=== PATIENT | male | born 1950 | race Caucasian/White ===

== ENCOUNTER 2017-06-01 14:16 | Day surgery (SDC) | payer OTHER, MEDICARE ==
[2017-06-01] MEDS ORDERED: DIAZEPAM 5 MG TAB ONE (14:36)
[2017-06-01] MEDS ORDERED: DEXAMETHASONE SOD PHOS PF 10 MG/ML SOL IJ ONE (15:19)
[2017-06-01] MEDS ORDERED: BUPIVACAINE HCL 0.25% MPF 10 ML SOL INFIL ONE (15:20)
[2017-06-01 16:16] VITALS: BP 148/88; PULSE 62; RESP 16; TEMP 98.5; O2SAT 94
== END 2017-06-01 16:20 | disposition home or self-care (01) ==
LOC: SURG 14:16
PROVIDERS: ATTEND Nurse Anesthetist, Certified Registered
DX: M54.5 Low back pain (principal); M54.16 Radiculopathy, lumbar region
CPT/HCPCS: A9270-GY; J1100

== ENCOUNTER 2017-08-29 12:32 | Day surgery (SDC) | payer OTHER, MEDICARE ==
[2017-08-29 13:32] VITALS: TEMP 99.4
[2017-08-29] MEDS ORDERED: SODIUM CHLORIDE 0.9% FLUSH 10 ML SOL IV ONE (13:55)
[2017-08-29] MEDS ORDERED: BUPIVACAINE HCL 0.25% MPF 30 ML SOL INFIL ONE (14:25)
[2017-08-29] MEDS: FENTANYL 100MCG/2ML SOL ONE ×2 (14:31→14:40)
[2017-08-29] MEDS: MIDAZOLAM 2 MG/2 ML SOL ONE ×2 (14:32→14:36)
[2017-08-29 14:47] VITALS: RESP 16
[2017-08-29] MEDS ORDERED: LIDOCAINE HCL 2% MPF 10 ML SOL ONE (15:11)
[2017-08-29 15:40] VITALS: BP 138/76; PULSE 71; O2SAT 95
== END 2017-08-29 15:30 | disposition home or self-care (01) ==
LOC: SURG 12:32
PROVIDERS: ATTEND Nurse Anesthetist, Certified Registered
DX: M12.88 Other specific arthropathies, not elsewhere classified, other specified site (principal); E11.9 Type 2 diabetes mellitus without complications
CPT/HCPCS: 82962; J2250; J3010

== ENCOUNTER 2017-09-27 09:20 | Day surgery (SDC) | payer OTHER, MEDICARE ==
[2017-09-27] MEDS ORDERED: LIDOCAINE HCL 2% MPF 10 ML SOL ONE (09:48)
[2017-09-27] MEDS ORDERED: LIDOCAINE HCL 1% MPF 30 SOL ONE (09:48)
[2017-09-27] MEDS ORDERED: BUPIVACAINE HCL 0.5% MPF 10 ML SOL ONE (09:49)
[2017-09-27] MEDS ORDERED: MIDAZOLAM 2 MG/2 ML SOL ONE ×2 (09:51→10:54)
[2017-09-27] MEDS ORDERED: SODIUM CHLORIDE 0.9% FLUSH 10 ML SOL IV ONE (10:02)
[2017-09-27] MEDS: FENTANYL 100MCG/2ML SOL ONE ×2 (10:14→10:50)
[2017-09-27] MEDS: TRIAMCINOLONE ACETONIDE 40 MG/ML SUS ONE ×2 (10:46→11:04)
[2017-09-27 11:25] VITALS: BP 168/95; RESP 18; TEMP 97.4; O2SAT 93
[2017-09-27 11:29] VITALS: PULSE 64
== END 2017-09-27 11:56 | disposition home or self-care (01) ==
LOC: SURG 09:20
PROVIDERS: ATTEND Nurse Anesthetist, Certified Registered
DX: M12.88 Other specific arthropathies, not elsewhere classified, other specified site (principal)
CPT/HCPCS: J2250; J3010; A6402; J2001; J3300

== ENCOUNTER 2017-11-08 13:14 | Day surgery (SDC) | payer OTHER, MEDICARE ==
[2017-11-08] MEDS ORDERED: BUPIVACAINE HCL 0.25% MPF 30 ML SOL INFIL ONE (14:10)
[2017-11-08] MEDS ORDERED: TRIAMCINOLONE ACETONIDE 40 MG/ML SUS ONE (14:10)
[2017-11-08] MEDS ORDERED: MIDAZOLAM 2 MG/2 ML SOL ONE (14:16)
[2017-11-08] MEDS ORDERED: SODIUM CHLORIDE 0.9% FLUSH 10 ML SOL IV ONE ×2 (14:34→14:37)
[2017-11-08] MEDS: FENTANYL 100MCG/2ML SOL ONE ×2 (14:35→14:37)
[2017-11-08] MEDS: TRIAMCINOLONE ACETONIDE 40 MG/ML SUS ONE ×2 (14:40→14:45)
[2017-11-08 15:04] VITALS: PULSE 67; RESP 20; TEMP 98.9; O2SAT 99
[2017-11-08 16:11] VITALS: BP 152/94
== END 2017-11-08 15:20 | disposition home or self-care (01) ==
LOC: SURG 13:14
PROVIDERS: ATTEND Nurse Anesthetist, Certified Registered
DX: M12.9 Arthropathy, unspecified (principal); E11.9 Type 2 diabetes mellitus without complications
CPT/HCPCS: J2250; J3010; J3300

== ENCOUNTER 2018-06-26 23:17 | Emergency (ER) | payer BC, MEDICARE ==
[2018-06-26] MEDS ORDERED: LIDOCAINE 1% W/EPI MPF 30 ML SOL INFIL ONE (23:57)
[2018-06-26] MEDS ORDERED: LIDOCAINE 1% W/EPI MPF 30 ML SOL ONE (23:59)
[2018-06-27] MEDS ORDERED: BACITRACIN 500 U/GM OIN TOP ONE ×2 (00:24→00:29)
[2018-06-27 00:46] VITALS: RESP 18; TEMP 97.1
[2018-06-27 00:55] VITALS: BP 128/64; PULSE 82; O2SAT 98
== END 2018-06-27 00:35 | disposition home or self-care (01) ==
LOC: ED 23:17
DX: S01.01XA Laceration without foreign body of scalp, initial encounter (principal); W22.8XXA Striking against or struck by other objects, initial encounter
CPT/HCPCS: 12002; 99284; A6402; A9270-GY